=== PATIENT | male | born 1990 | race Caucasian/White ===

== ENCOUNTER 2021-03-07 11:50 | Emergency (ER) | payer OTHER ==
[~2021-03-07] VITALS: Ht 172 cm; Wt 74.0 kg
[2021-03-07 11:55] VITALS: BP 148/73
[2021-03-07] MEDS ORDERED: AMOX-358 PO (12:06)
--- NOTE | 2021-03-07 12:06 | ED General ---
General Chief Complaint: Bite-Animal/Human/Insect Stated Complaint: DOG BITE History of Present Illness Date Seen by Provider: March 07, 2021 Time Seen by Provider: 12:05 Initial Comments Patient presenting to the emergency department for evaluation of a dog bite wound to his right thigh that was sustained shortly prior to arrival. He is in police custody and apparently was bitten by another individual's dog. He knows the dog and says the dog is up-to-date on immunizations and he says he himself has had his tetanus. He is able to ambulate without difficulty and denies any weakness numbness or tingling. There is no active bleeding. Allergies and Home Medications Home Medications Amoxicillin/Potassium Clav 1 Each Tablet, 1 EACH PO BID Prescribed by: EDUARD DONALDSON on 03/07/21 1206 Patient Home Medication List Home Medication List Reviewed: Yes Review of Systems Review of Systems Constitutional: no symptoms reported Respiratory: no symptoms reported Cardiovascular: no symptoms reported Musculoskeletal: muscle pain Skin: other (Dog bite wounds) Psychiatric/Neurological: No Symptoms Reported All Other Systems Reviewed Negative Unless Noted: Yes Physical Exam Vital Signs Vital Signs - First Documented 03/07/21 11:55 Temp 37.3 Pulse 112 Resp 18 B/P (MAP) 148/73 (98) Pulse Ox 97 O2 Delivery Room Air Capillary Refill : Height, Weight, BMI Height: '" Weight: lbs. oz. kg; BMI Method: General Appearance: No Apparent Distress, WD/WN Respiratory: No Respiratory Distress Cardiovascular: Regular Rate, Rhythm Extremity: Normal Capillary Refill Neurologic/Psychiatric: Alert, Oriented x3, No Motor/Sensory Deficits Skin: Warm/Dry, Other (Multiple dog bite puncture wounds on the right lower anterior thigh in addition there is puncture wounds on the posterior lower h amstring region as well. All of them are punctures in her not open lacerations and there is no active bleeding or foreign body identified on exam.) Progress/Results/Core Measures Suspected Sepsis SIRS Temperature: Pulse: Respiratory Rate: Blood Pressure / Mean: Results/Orders Vital Signs/I&O 03/07/21 11:55 Temp 37.3 Pulse 112 Resp 18 B/P (MAP) 148/73 (98) Pulse Ox 97 O2 Delivery Room Air Capillary Refill : Progress Note : Progress Note Patient has full range of motion of his leg and there is no signs of compartment syndrome. He has a normal neurovascular exam and is able to ambulate without difficulty. He was inquiring about having the puncture wound sutured and I told him that suturing dog bite puncture wounds would not be a good idea and that they should be left open to drain. Patient will be started on Augmentin for his dog bite wounds. He was told to come back to emergency department with worsening pain redness swelling or other concerns otherwise he can follow-up with primary care provider and 3 to 4 days to ensure improvement. Patient aware and agreeable with plan and was discharged on Augmentin in police custody. Departure Impression Primary Impression: Dog bite Qualified Codes: W54.0XXA - Bitten by dog, initial encounter Additional Impression: Puncture wound Disposition: HOME, SELF-CARE Condition: Stable Departure-Patient Inst. Referrals: NO,LOCAL PHYSICIAN (PCP/Family) Primary Care Physician Patient Instructions: Animal Bites (DC) Scripts Amoxicillin/Potassium Clav (Augmentin 875-125 Tablet) 1 Each Tablet 1 EACH PO BID, #14 TAB 0 Refills Prov: EDUARD DONALDSON DO 03/07/21 EDUARD DONALDSON DO March 07, 2021 12:06
== END 2021-03-07 12:10 | disposition home or self-care (01) ==
LOC: ER FS 11:53
DX: S71.131A Puncture wound without foreign body, right thigh, initial encounter (principal); W54.0XXA Bitten by dog, initial encounter

== ENCOUNTER 2021-11-11 09:04 | Emergency (ER) | payer SELFPAY ==
[~2021-11-11] VITALS: Ht 172.7 cm; Wt 80.7 kg
[~2021-11-11 09:04] MED LIST: AMOX-358 PO
--- NOTE | 2021-11-11 09:34 | ED Integumentary General ---
General Chief Complaint: Bite-Animal/Human/Insect Stated Complaint: RIGHT KNEE PAIN,SWELLING, POSSIBLE SPIDER BITE Nursing Triage Note: PT AMBULATE TO ROOM FS02 WITH C/O SPIDER BITE 19 DAYS AGO. PT REPORTS THAT HE THOUGHT IT WAS GETTING BETTER AND NOW IT IS NOT. PT STATES HE HAS NOT BEEN SEEN BY PCP FOR THIS C/O. Source: patient History of Present Illness Date Seen by Provider: Nov 11, 2021 Time Seen by Provider: 09:09 Initial Comments 31 yo male presenting with what he felt started as a Brown Recluse Spider bite to his right knee on Oct 23. He had been managing this at home and had a large hole where the infection started and a scab came out. It had seemed to be improving but then in the last week he had a new area start on more lateral and superior aspect of his kneecap. He has had pus draining from the wounds and has had increased redness and warmth. He denies having any fever or chills. He has had no redness streaking up his leg. He has increased pain when he tries to walk or move around. He has been been treating it with antibiotic ointment and covering it with a gauze dressing. He denies any history of MRSA or staph infection. He also denies having a primary care physician or provider to check back with. Timing/Duration: getting worse (Since October 23) Severity: moderate Location: extremities (Right knee) Possible Cause: insect bite (He felt that it started with a brown recluse spider bite) Modifying Factors: worse with scratching Associated Symptoms: No blisters, No change in skin texture, No edema, No fever, No flushing, No headache, No hives, No jaundice, No malaise, No nasal congestion, No numbness, No pallor, No paresthesia, No petechiae, No rash, No sore throat; swelling/mass/lumps ( right kneecap); No tingling Allergies and Home Medications Allergies Coded Allergies: No Known Drug Allergies (Unverified , 11/11/21) Patient Home Medication List Home Medication List Reviewed: Yes Amoxicillin/Potassium Clav (Augmentin 875-125 Tablet) 1 Each Tablet, 1 EACH PO BID Prescribed by: EDUARD DONALDSON on 03/07/21 1206 Sulfamethoxazole/Trimethoprim (Bactrim Ds Tablet) 1 Each Tablet, 1 EACH PO BID Prescribed by: TRAY NETTLES on 11/11/21 0935 Review of Systems Review of Systems Constitutional: No chills, No fever EENTM: no symptoms reported Respiratory: no symptoms reported Cardiovascular: no symptoms reported Gastrointestinal: no symptoms reported Genitourinary: no symptoms reported Musculoskeletal: see HPI, muscle pain (Mild tenderness to the right kneecap where he has redness and swelling from the infection) Skin: change in color (Redness and swelling to the right kneecap where he has infection and has an area of drainage) Psychiatric/Neurological: Denies Numbness, Denies Paresthesia Endocrine: No Symptoms Reported Hematologic/Lymphatic: Denies Easy Bleeding, Denies Easy Bruising Past Epdufje-Zblcct-Ebawes Hx Patient Social History Tobacco Use?: Yes Tobacco type used: Cigarettes Smoking Status: Current Everyday Smoker Smokeless Tobacco Frequency: Never a User Use of E-Cig and/or Vaping dev: No Use of E-Cig and/or Vaping Vaughn: Never a User Alcohol Use?: No Pt feels they are or have been: No Immunizations Up To Date Tetanus Booster (TDap): Less than 5yrs Seasonal Allergies Seasonal Allergies: No Past Medical History Surgeries: No Respiratory: No Cardiac: No Neurological: No Genitourinary: No Gastrointestinal: No Musculoskeletal: No Endocrine: No HEENT: No Cancer: No Psychosocial: No Integumentary: No Blood Disorders: No Physical Exam Vital Signs Vital Signs - First Documented 11/11/21 09:08 Temp 36.4 Pulse 101 Resp 17 B/P (MAP) 128/81 (97) O2 Delivery Room Air Capillary Refill : General Appearance: WD/WN, no apparent distress HEENT: PERRL/EOMI, pharynx normal Neck: non-tender, supple Cardiovascular: normal peripheral pulses, regular rate, rhythm Respiratory: chest non-tender, lungs clear, normal breath sounds, no respiratory distress, no accessory muscle use Gastrointestinal: normal bowel sounds, soft, no pulsatile mass Extremities: normal range of motion, non-tender, normal capillary refill Neurologic/Psychiatric: alert, oriented x 3 Skin: warm/dry Skin Problem Location: lower extremities (Right knee) Skin Problem Character: erythema (Redness to the right knee with 2 areas of eschar and drainage. Small amount of purulent drainage on the superior and lateral aspect of the erythematous area.), swelling, tenderness Progress/Results/Core Measures Results/Orders My Orders Orders - TRAY NETTLES MD Wound Culture (11/11/21 09:24) Wound Dressing-Ed (11/11/21 09:24) Vital Signs/I&O 11/11/21 09:08 Temp 36.4 Pulse 101 Resp 17 B/P (MAP) 128/81 (97) O2 Delivery Room Air Blood Pressure Mean: 97 Progress Progress Note : Progress Note There is no signs of ischemic changes on his current wound. There is a small amount of drainage from his eschar area on the lateral and superior aspect of the region that is reddened and tender. Area was cleaned with chlorhexidine scrub soap and sterile water. The drainage was then swabbed for wound culture. No I&D was performed as he already had drainage coming from the wound. Will start patient on Bactrim DS twice a day and if needed change antibiotics based off of his culture. Counseled on follow-up and return precautions. Counseled on symptomatic treatment. Advised to try using heat to help the area come to ahead and heal faster. Counseled that it will take 2 to 3 days before he will start seeing improvement. Patient declined having a shot to try and help speed up healing. Departure Impression Primary Impression: Abscess or cellulitis of knee Disposition: HOME, SELF-CARE Condition: Stable Departure-Patient Inst. Decision time for Depature: 09:30 Referrals: REBECCA,LOCAL PHYSICIAN (PCP) Primary Care Physician [facility] Call [phone] to get established with a provider for follow up Patient Instructions: Cellulitis (Skin Infection), Adult ED Add. Discharge Instructions: At this point the infection on your knee is a cellulitis or skin infection and will need antibiotics to treat it. Take the full course of antibiotics to treat the infection. It will take at least 48 to 72 hours before you start to see improvement in the redness, swelling and pain to your knee. Apply heat for 5-10 minutes every few hours as you tolerate it to help the area heal and if it is going to drain more this will also help with that. Use Ibuprofen alternating with Acetaminophen if needed for pain and inflammation to your knee Check with clinic and establish care with them for continued concerns. If the wound culture from today shows that you need a different antibiotic you will get a call in 2-3 days once the culture results come back from the lab. The Culture will show what bacteria is causing the infection and what antibiotics will work best to treat the infection. All discharge instructions reviewed with patient and/or family. Voiced understanding. Scripts Sulfamethoxazole/Trimethoprim (Bactrim Ds Tablet) 1 Each Tablet 1 EACH PO BID for cellulitis for 10 Days, #20 TAB 0 Refills Prov: TRAY NETTLES MD 11/11/21 Images Extremities-Lower 1 - Cellulitis, Tenderness (area of redness with tenderness to palpation. 2 areas of eschar and small amount of drainage from eschar superior lateral aspect of red region) TRAY NETTLES MD Nov 11, 2021 09:34
[2021-11-11] MEDS ORDERED: SULF1TAB38 PO (09:35)
[2021-11-11 09:38] VITALS: BP 131/76
== END 2021-11-11 09:38 | disposition home or self-care (01) ==
LOC: EDUNIT# 09:04 → ER FS 09:06
DX: L02.415 Cutaneous abscess of right lower limb (principal); L03.115 Cellulitis of right lower limb; F17.210 Nicotine dependence, cigarettes, uncomplicated
CPT/HCPCS: 87070; 87077; 87186; 87205; 99282

== ENCOUNTER 2022-05-26 11:43 | Emergency (ER) | payer OTHER ==
[~2022-05-26] VITALS: Ht 172 cm; Wt 85.0 kg
[~2022-05-26 11:43] MED LIST changes: +SULF1TAB38 PO
[2022-05-26 12:41] VITALS: BP 116/57
[2022-05-26 13:47] LABS: BASOPHILS # (AUTO) 0.1 10^3/uL (0.0-0.1); BASOPHILS % (AUTO) 0 % (0-10); EOSINOPHILS # (AUTO) 0.1 10^3/uL (0.0-0.3); EOSINOPHILS % (AUTO) 1 % (0-10); HEMATOCRIT 43 % (40-54); HEMOGLOBIN 14.7 g/dL (13.3-17.7); LYMPHOCYTES # (AUTO) 1.4 10^3/uL (1.0-4.0); LYMPHOCYTES % (AUTO) 9 % (12-44); MEAN CORPUSCULAR HEMOGLOBIN 29 pg (25-34); MEAN CORPUSCULAR HGB CONC 34 g/dL (32-36); MEAN CORPUSCULAR VOLUME 86 fL (80-99); MEAN PLATELET VOLUME 9.6 fL (9.0-12.2); MONOCYTES # (AUTO) 0.6 10^3/uL (0.0-1.0); MONOCYTES % (AUTO) 4 % (0-12); NEUTROPHILS # (AUTO) 13.9 10^3/uL (1.8-7.8); NEUTROPHILS % (AUTO) 86 % (42-75); PLATELET COUNT 386 10^3/uL (130-400); WHITE BLOOD COUNT 16.1 10^3/uL (4.3-11.0)
[2022-05-26 14:02] LABS: INR 0.9 (0.8-1.4); PROTHROMBIN TIME PATIENT 12.6 SEC (12.2-14.7)
[2022-05-26 14:09] LABS: FIBRIN DEGRADATION PRODUCTS 1.12 UG/ML (0.00-0.49)
[2022-05-26 14:10] LABS: EOSINOPHILS % (MANUAL) 2 %; LYMPHOCYTES % (MANUAL) 14 %; MONOCYTES % (MANUAL) 3 %; NEUTROPHILS % (MANUAL) 81 %
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
== END 2022-05-26 14:48 | disposition home or self-care (01) ==
LOC: EDUNIT# 11:43 → ER FS 11:45
DX: M79.89 Other specified soft tissue disorders (principal); R79.1 Abnormal coagulation profile; F17.210 Nicotine dependence, cigarettes, uncomplicated
CPT/HCPCS: 36415; 85007; 85027; 85379; 85610; 85730; 99281